=== PATIENT | male | born 1980 | race Caucasian/White ===

== ENCOUNTER → 2024-11-09 09:45 | Outpatient (REF) | payer BC, SELFPAY ==
[2024-11-09 10:55] LABS: Urine Albumin Negative (Neg - Trace); Urine Bilirubin Negative (Negative); Urine Character Clear (Clear); Urine Color Yellow; Urine Glucose Negative (Negative); Urine Ketone Negative (Negative); Urine Leukocyte Negative (Negative); Urine Nitrite Negative (Negative); Urine Occult Blood Negative (Negative); Urine Specific Gravity 1.005 (<1.030); Urine Urobilinogen Negative (Neg - 1+)
[2024-11-09 10:58] LABS: % Basophils 1.3 % (0-2); % Eosinophils 1.6 % (0-6); % Immature Granulocytes 0.3 % (0-0.5); % Lymphocytes 23.1 % (20.5-51.1); % Monocytes 10.9 % (1.7-9.3); % Neutrophils 62.8 % (42.2-75.2); Absolute Basophils 0.1 10^3/uL (0-0.2); Absolute Eosinophils 0.1 10^3/uL (0-0.7); Absolute Lymphocytes 0.9 10^3/uL (1.2-3.4); Absolute Monocytes 0.4 10^3/uL (0.1-0.6); Absolute Neutrophils 2.4 10^3/uL (1.4-6.5); Hematocrit 42.4 % (39.0-52.0); Mean Corpuscular Hgb 30.2 pg (27.0-31.0); Mean Corpuscular Volume 91.4 fL (80.0-94.0); Mean Platelet Volume 9.5 fL (7.4-10.4); Nucleated Red Blood Cells % 0 % (-); Platelet Count 299 10^3/uL (130-400); Red Blood Cell Count 4.64 10^6/uL (4.70-6.10); White Blood Cell Count 3.8 10^3/uL (4.8-10.8)
[2024-11-09 11:58] LABS: ALT (SGPT) 25 U/L (0-50); AST (SGOT) 26 U/L (17-59); Albumin 4.7 g/dl (3.5-5.0); Alkaline Phosphatase 59 U/L (38-126); Blood Urea Nitrogen 18 mg/dl (9-20); Carbon Dioxide 31 mmol/L (22-30); Chloride 106 mmol/L (98-107); Glucose 94 mg/dl (70-99); HDL Cholesterol 96 mg/dl; LDL Cholesterol, Calculated 80 mg/dl; Potassium 4.4 mmol/L (3.5-5.1); Sodium 142 mmol/L (135-145); Total Bilirubin 0.7 mg/dl (0.2-1.3); Total Cholesterol 185 mg/dl (50-199); Triglyceride 49 mg/dl (10-149); Very Low Density Lipoprotein 9 mg/dl (0-30); eGFR > 60.00
[2024-11-09 12:24] LABS: PSA, Total - Screen 0.86 ng/ml (0.0-4.0); TSH 1.14 uIU/ml (0.47-4.68)
== END ==
LOC: REG 09:45
PROVIDERS: ATTENDING PHYSICIAN Internal Medicine
DX: Z00.00 Encounter for general adult medical examination without abnormal findings (principal); Z12.5 Encounter for screening for malignant neoplasm of prostate
CPT/HCPCS: 36415; 80053; 80061; 81003; 84443; 85025; G0103

== ENCOUNTER → 2024-11-12 11:32 | Outpatient (REF) | payer BC, SELFPAY | LOC: HWRAD 11:32 | PROVIDERS: ATTENDING PHYSICIAN Internal Medicine | DX: R10.32 Left lower quadrant pain (principal) | CPT/HCPCS: 76882 ==